=== PATIENT | female | born 1995 | race Caucasian/White ===

== ENCOUNTER 2023-11-24 03:10 | Emergency (ER) | payer BC, SELFPAY ==
[2023-11-24 03:10] VITALS: BMI 21.2
[2023-11-24 03:13] VITALS: BP 110/70
--- NOTE | 2023-11-24 03:29 | ED.GENMED ---
History of Present Illness
<BRIANNA Hernandez - Last Filed: 11/24/23 03:58>
General
Chief Complaint: Throat Problem
Source: patient
Exam Limitations: none
Time Seen by Provider: 11/24/23 03:26
Nursing documentation reviewed up to this point in time: agreed with
Travel History
Have you traveled to any high risk areas for coronavirus over the past 14 days?: No
Have you had any contact with someone who has COVID-19?: No
Do you have any symptoms of coronavirus? Fever > 100 degrees, chills, cough, shortness of breath, sore throat, loss of taste or smell, muscle aches, or headache?: No
History of Present Illness
History of Present Illness:
patient is a 28 y/o female presenting with a sore throad x 3 days. Patient admits that she has pain with swallowing and hoarseness. patient admits that tea helps. Patient admits to swollen lymph nodes and neck enlargement. Patient admits to previous
episodes of tonisillitis in the past. Patient states other episodes are similar to this one. Patient admits to nasal congestion and associated nasuea. Patient states she went to urgent care earlier today and tested negative for influenza, COVID and
strep throat. Patient denies any change in diet or medication. Patient denies any sick contacts. patient denies any recent alcohol or smoking ingestion. Patient denies fever, cough, SOB, vommiting.
Past History
<BRIANNA Hernandez - Last Filed: 11/24/23 03:58>
Social History
Tobacco: Non-smoker
Alcohol: None
Review of Systems
<BRIANNA Hernandez - Last Filed: 11/24/23 03:58>
Review of Systems
Allergies reviewed?: Yes
All Other Systems: Not applicable
Constitutional: Reports no symptoms
EENT: Reports sore throat, runny nose and other (hoarseness. difficulty swallowing )
Respiratory: Reports no symptoms
Cardiac: Reports no symptoms
ABD/GI: Reports nausea
: Reports no symptoms
Musculoskeletal: Reports no symptoms
Skin: Reports no symptoms
Neurological: Reports no symptoms
Endocrine: Reports no symptoms
Hematologic/Lymphatic: Reports no symptoms
Psychiatric: Reports no symptoms
Phy Exam
<BRIANNA Hernandez - Last Filed: 11/24/23 03:58>
General Physical Exam
General Presentation: mild distress
General age: appears stated age
General Skin: warm
General Habitus: normal
General Mental: alert
General Hydration: appears well hydrated
ENT Exam
ENT Exam: lymphnodes
Additional ENT: erythematous tonsilles with exudates, clear rhinorrhea,
Eye Exam
Eye Exam: PERRL, cornea clear and conjunctiva normal
Cardiovascular Exam
Cardiovascular Exam: regular rate/rhythm, no edema, no murmur and normal peripheral pulses
Pulmonary Exam
Pulmonary Exam: lungs clear, no respiratory distress, no rales, no crackles, no rhonchi, no stridor, no wheezing and no cough
Gastrointestinal Exam
Gastrointestinal Exam: normal bowel sounds, non tender, soft, no organomegaly, no pulsatile mass and non distended
Neurological Exam
Neurological Exam: alert, oriented x3, no motor deficits and speech normal
Musculoskeletal Exam
Musculoskeletal Exam: full ROM and no edema
Skin Exam
Skin Exam: normal color, warm/dry, no rash and no petechia
Psychiatric Exam
Psychiatric Exam: normal mood/affect
Course
<BRIANNA Hernandez - Last Filed: 11/24/23 03:58>
Orders/Labs/Results
Orders:
Orders
11/24/23 04:10
CT Neck With Iv Contrast Urgent
Comment:
Reason For Exam: throat swelling, voice change
03/13/24 04:17
Ketorolac [Toradol] 15 mg .ROUTE .STK-MED ONE
Ondansetron Injectable [Zofran] 4 mg .ROUTE .STK-MED ONE
11/24/23 04:24
Complete Blood Count/With Diff Urgent
Comprehensive Metabolic Panel Urgent
HCG, Serum Qualitative Screen Urgent
Comment: ADDED
Sed Rate [Erythrocyte Sed Rate] Urgent
Ondansetron Injectable [Zofran] 4 mg IV NOW STA
11/24/23 04:25
Ketorolac [Toradol] 15 mg IV NOW STA
11/24/23 04:35
Add On- LAB Routine
Tests Added?: qualitative serum
11/24/23 05:24
Dexamethasone Pf [Decadron] 10 mg PO NOW STA
Abnormal Lab Results
11/24/23
04:24
WBC 11.6 H 10^3/uL
(4.8-10.8)
Absolute Neuts (auto) 9.0 H 10^3/uL
(1.4-6.5)
Absolute Monos (auto) 0.9 H 10^3/uL
(0.1-0.6)
Neutrophils % 78.0 H %
(42.2-75.2)
Lymphocytes % 11.7 L %
(20.5-51.1)
Creatinine 0.5 L mg/dL
(0.6-1.0)
Glucose 105 H mg/dl
(70-99)
11/24/23 04:24
11/24/23 04:24
Vital Signs
Initial and Last Documented VS:
Initial Vital Signs
Temp Pulse Resp BP Pulse Ox
98.1 F 84 18 110/70 98
11/24/23 03:13 11/24/23 03:13 11/24/23 03:13 11/24/23 03:13 11/24/23 03:13
Last Documented Vital Signs
Temp Pulse Resp BP Pulse Ox
98.1 F 84 18 110/77 98
11/24/23 03:13 11/24/23 03:13 11/24/23 03:13 11/24/23 04:23 11/24/23 03:13
<Reza Carpio, DO - Last Filed: 11/24/23 05:44>
Orders/Labs/Results
Orders:
Orders
11/24/23 04:10
CT Neck With Iv Contrast Urgent
Comment:
Reason For Exam: throat swelling, voice change
11/24/23 04:17
Ketorolac [Toradol] 15 mg .ROUTE .STK-MED ONE
Ondansetron Injectable [Zofran] 4 mg .ROUTE .STK-MED ONE
11/24/23 04:24
Complete Blood Count/With Diff Urgent
Comprehensive Metabolic Panel Urgent
HCG, Serum Qualitative Screen Urgent
Comment: ADDED
Sed Rate [Erythrocyte Sed Rate] Urgent
Ondansetron Injectable [Zofran] 4 mg IV NOW STA
11/24/23 04:25
Ketorolac [Toradol] 15 mg IV NOW STA
11/24/23 04:35
Add On- LAB Routine
Tests Added?: qualitative serum
11/24/23 05:24
Dexamethasone Pf [Decadron] 10 mg PO NOW STA
Abnormal Lab Results
11/24/23
04:24
WBC 11.6 H 10^3/uL
(4.8-10.8)
Absolute Neuts (auto) 9.0 H 10^3/uL
(1.4-6.5)
Absolute Monos (auto) 0.9 H 10^3/uL
(0.1-0.6)
Neutrophils % 78.0 H %
(42.2-75.2)
Lymphocytes % 11.7 L %
(20.5-51.1)
Creatinine 0.5 L mg/dL
(0.6-1.0)
Glucose 105 H mg/dl
(70-99)
11/24/23 04:24
11/24/23 04:24
Vital Signs
Initial and Last Documented VS:
Initial Vital Signs
Temp Pulse Resp BP Pulse Ox
98.1 F 84 18 110/70 98
11/24/23 03:13 11/24/23 03:13 11/24/23 03:13 11/24/23 03:13 11/24/23 03:13
Last Documented Vital Signs
Temp Pulse Resp BP Pulse Ox
98.1 F 84 18 110/77 98
11/24/23 03:13 11/24/23 03:13 11/24/23 03:13 11/24/23 04:23 11/24/23 03:13
<BRIANNA Hernandez - Last Filed: 11/24/23 03:58>
MDM/Problems Addressed
Differential Diagnosis Includes:
tonsillitis
strep throat
laryngitis
peritonsillar abscess
epiglottitis
MDM/Problems Addressed:
patient is a 28 y/o f presenting with sore throat x 3 days
<BRIANNA Hernandez - Last Filed: 11/24/23 03:58>
*Critical Care Note
Total Time (30-74mins, 75-104mins- exclusive of procedures): Not Applicable
<Reza Carpio DO - Last Filed: 11/24/23 05:44>
Update Note
Update Note:
CT neck with intravenous contrast
IMPRESSION:
No peritonsillar or retropharyngeal fluid collection. Epiglottis normal.
Reactive cervical lymph nodes. Lung apices clear. Airway patent. Vascular structures patent.
Finalized at 5:07 AM EST
ED Attending Note
<Davida LakhaniBRIANNA cross - Last Filed: 11/24/23 03:58>
-
Portions of this chart may have been created with voice recognition software.� Occasional wrong word or��sound alike� substitutions may have occurred due to the inherent limitations of voice recognition software.
<Reza Carpio DO - Last Filed: 11/24/23 05:44>
ED Attending Note
Patient seen and examined by attending physician: Yes
I performed the substantive portion of visit, reviewed & personally made and approve the management plan that is documented in note by myself or CL.: Yes
ED Attending Note:
This a pleasant 28-year-old female that presents with sore throat for the last 3 days. Patient reports that she has had difficulty swallowing and hoarseness in her voice. Warm tea has helped. She went to urgent care and she tested negative for
strep throat. They did not prescribe any medications. Patient denies any sick contacts. Patient does report complaint of enlarged cervical lymph nodes. Patient was seen in conjunction with the PA student. I have reviewed and agree with the
history and treatment plan presented. On my independent physical exam, patient is awake, alert, and oriented x3 oropharynx is clear, tonsils are red but no exudate. Uvula is midline. Heart is regular rate rhythm.
Discharge Plan
Departure
Referrals:
Martina Aguila MD [Family Provider] -
Interventions
Interventions:
*Risk Screen - Suicide Last Done: 11/24/23 03:13
*General Assessment Last Done: 11/24/23 03:47
*Neglect/Abuse Screening Last Done: 11/24/23 03:13
ED- Fall Risk Assessment Last Done: 11/24/23 03:47
*ED COVID-19 Vaccine History Last Done: 11/24/23 03:47
ED-EENT Assessment Last Done: 11/24/23 03:41
ED- Neurological Assessment Last Done: 11/24/23 03:41
ED- Pulmonary Assessment Last Done: 11/24/23 03:41
ED-Skin Assessment Last Done: 11/24/23 03:41
[2023-11-24 04:23] VITALS: BP 110/77
[2023-11-24] MEDS: TORADOL 15 MG IV (04:25)
[2023-11-24] MEDS: ZOFRAN 4 MG IV (04:25)
[2023-11-24 04:41] LABS: % Basophils 0.5 % (0-2); % Eosinophils 1.6 % (0-6); % Immature Granulocytes 0.3 % (0-0.5); % Lymphocytes 11.7 % (20.5-51.1); % Monocytes 7.9 % (1.7-9.3); Absolute Basophils 0.1 10^3/uL (0-0.2); Absolute Eosinophils 0.2 10^3/uL (0-0.7); Absolute Lymphocytes 1.4 10^3/uL (1.2-3.4); Absolute Monocytes 0.9 10^3/uL (0.1-0.6); Hematocrit 38.6 % (37.0-47.0); Hemoglobin 13.5 g/dL (12.0-16.0); Mean Corpuscular Hgb 29.3 pg (27.0-31.0); Mean Corpuscular Volume 83.9 fL (81.0-99.0); Mean Platelet Volume 8.4 fL (7.4-10.4); Nucleated Red Blood Cells % 0 %; Platelet Count 290 10^3/uL (130-400); White Blood Cell Count 11.6 10^3/uL (4.8-10.8)
[2023-11-24 05:00] VITALS: BP 108/66
[2023-11-24 05:04] LABS: ALT (SGPT) 14 U/L (0-35); AST (SGOT) 21 U/L (14-36); Albumin 4.6 g/dl (3.5-5.0); Alkaline Phosphatase 57 U/L (38-126); Blood Urea Nitrogen 10 mg/dl (7-17); Calcium 9.8 mg/dl (8.4-10.2); Carbon Dioxide 25 mmol/L (22-30); Chloride 104 mmol/L (98-107); Estimated Creatinine Clearance 111 ml/min; Glucose 105 mg/dl (70-99); Potassium 4.2 mmol/L (3.5-5.1); Sodium 138 mmol/L (135-145); Total Bilirubin 0.4 mg/dl (0.2-1.3); Total Protein 7.4 g/dl (6.3-8.2); eGFR > 60.00
[2023-11-24 05:20] VITALS: BP 112/70
[2023-11-24 05:35] LABS: Erythrocyte Sed Rate 2 mm/hour (0-20)
[2023-11-24 05:36] LABS: HCG, Serum Qualitative Screen Negative
[2023-11-24] MEDS: PEN VK 500 MG PO (06:00)
[2023-11-24] MEDS: DECADRON 10 MG PO (06:00)
== END 2023-11-24 06:17 | disposition home or self-care (01) ==
LOC: EMR 03:10
PROVIDERS: EMERGENCY PHYSICIAN Student in an Organized Health Care Education/Training Program; FAMILY PHYSICIAN Family Medicine
DX: J02.0 Streptococcal pharyngitis (principal)
CPT/HCPCS: 99284; 96374; 96375; 70491; 80053; 84703; 85025; 85652; Q9967